=== PATIENT | male | born 1970 | race Caucasian/White ===

== ENCOUNTER 2017-05-01 20:46 | Emergency (ER) | payer OTHER ==
[~2017-05-01] VITALS: Ht 172.7 cm; Wt 74.6 kg
[2017-05-02] MEDS ORDERED: FLEXERIL10 MG PO (00:53)
[2017-05-02] MEDS ORDERED: NORCO 5/3251 TABLET PO (00:53)
[2017-05-02 01:19] VITALS: BP 136/76
== END 2017-05-02 01:20 | disposition home or self-care (01) ==
LOC: EME 20:46
DX: S80.01XA Contusion of right knee, initial encounter (principal); S20.219A Contusion of unspecified front wall of thorax, initial encounter; S80.211A Abrasion, right knee, initial encounter; V28.4XXA Motorcycle driver injured in noncollision transport accident in traffic accident, initial encounter; Y92.411 Interstate highway as the place of occurrence of the external cause
CPT/HCPCS: 71020; 71100; 73564; 99281; 99284